=== PATIENT | female | born 1965 | race American Indian/Alaskan Native ===

== ENCOUNTER 2018-07-30 13:18 | Emergency (ER) | payer OTHER ==
[2018-07-30] MEDS ORDERED: Acetaminophen/Codeine 300-30 MG Tab PO ONE (14:22)
--- NOTE | 2018-07-30 14:25 | EDM.PDOC ---
ED HPI GENERAL MEDICAL PROBLEM - General Chief Complaint: Lower Extremity Injury/Pain Stated Complaint: RIGHT FOOT PAIN Time Seen by Provider: 07/30/18 14:23 Source of Information: Reports: Patient History Limitations: Reports: No Limitations - History of Present Illness INITIAL COMMENTS - FREE TEXT/NARRATIVE: pt tripped on a rug this am and she is having pain in the rt great toe area. Onset: Today, Other ( happened this am. ) Duration: Hour(s): Associated Symptoms: Reports: No Other Symptoms Right Feet Pain Score (Numeric/FACES): 10 - Related Data Allergies Allergy/AdvReac Type Severity Reaction Status Date / Time No Known Allergies Allergy Verified 07/30/18 13:51 Home Meds: Home Meds NK [No Known Home Meds] 07/30/18 [History] Past Medical History [employer] History: Reports: - Past Surgical History Head Surgeries/Procedures: Reports: None Dermatological Surgical History: Reports: None Social & Family History - Tobacco Use Smoking Status *Q: Current Every Day Smoker Years of Tobacco use: 4 Packs/Tins Daily: 0.5 Used Tobacco, but Quit: No Second Hand Smoke Exposure: Yes - Caffeine Use Caffeine Use: Reports: Coffee, Soda - Recreational Drug Use Recreational Drug Use: No Review of Systems - Review of Systems Review Of Systems: See Below Constitutional: Reports: No Symptoms Eyes: Reports: No Symptoms Ears: Reports: No Symptoms Nose: Reports: No Symptoms Mouth/Throat: Reports: No Symptoms Respiratory: Reports: No Symptoms Cardiovascular: Reports: No Symptoms GI/Abdominal: Reports: No Symptoms Genitourinary: Reports: No Symptoms Musculoskeletal: Reports: Other (pt tripped on a rug and injured her rt foot. ) Skin: Reports: No Symptoms Neurological: Reports: No Symptoms ED EXAM, GENERAL - Physical Exam Exam: See Below Free Text/Narrative:: pt arrived with pain in the rt foot. She has some swelling. in the foot and bruising. Exam Limited By: No Limitations General Appearance: Alert, Anxious, Mild Distress Extremities: Other (there is swelling and bruising. She has tenderness by the great toe. There is tenderness over the 5th metatarsal. ) Neurological: Alert, Oriented, Normal Cognition Course - Vital Signs Last Recorded V/S: Last Vital Signs Temp 37.1 C 07/30/18 13:57 Pulse 87 07/30/18 13:57 Resp 16 07/30/18 13:57 BP 184/116 H 07/30/18 13:57 Pulse Ox 97 07/30/18 13:57 - Orders/Labs/Meds Meds: Medications Discontinued Medications Generic Name Dose Route Start Last Admin Trade Name Freq PRN Reason Stop Dose Admin Acetaminophen/Codeine Phosphate 1 tab 07/30/18 14:22 07/30/18 14:27 Tylenol With Codeine No.3 300mg/30mg PO 07/30/18 14:23 1 tab ONETIME ONE Administration Oxycodone/Acetaminophen 1 tab 07/30/18 15:14 07/30/18 15:26 Percocet 325-5 Mg PO 07/30/18 15:15 1 tab ONETIME ONE Administration - Re-Assessments/Exams Free Text/Narrative Re-Assessment/Exam: 07/30/18 15:13 fracture of the proximal 5th metatarsal-- undisplaced -- seen on xray. Departure - Departure Time of Disposition: 15:14 Disposition: Home, Self-Care 01 Condition: Fair Clinical Impression: Fracture of 5th metatarsal - Discharge Information Instructions: Metatarsal Fracture Referrals: PCP,None [Primary Care Provider] - Forms: ED Department Discharge Care Plan Goals: cam walker, crutches, when sitting elevate the foot. cool pack to the leteral portion of foot. tylenol 3 1-2 tabs 6h prn for pain, motrin 600mg qid on a regular basis.
[2018-07-30] MEDS ORDERED: Acetaminophen/oxyCODONE 325-5 MG Tab PO ONE (15:14)
--- NOTE | 2018-07-30 15:14 | CR ---
FOOT RIGHT 3 views CLINICAL HISTORY:Pain, trauma FINDINGS:There is a transverse minimally displaced fracture through the base of the fifth metatarsal. There is some osteoarthritic change at the first toe with bunion formation. There is some mild widening of the distal first metatarsal sesamoids. This is of questionable significance. There is a calcaneal spur. Impression: Fracture at the base of the fifth metatarsal Osteoarthritis with bunion formation Question of separation of the first metatarsal sesamoids of questioned significance. If clinical symptomatology persists repeat study should be considered.
== END 2018-07-30 15:33 | disposition home or self-care (01) ==
LOC: JP.ED 13:18
DX: S92.351A Displaced fracture of fifth metatarsal bone, right foot, initial encounter for closed fracture (principal); F17.210 Nicotine dependence, cigarettes, uncomplicated; W22.8XXA Striking against or struck by other objects, initial encounter
CPT/HCPCS: 73630; 99284; A9270